=== PATIENT | male | born 1985 | race African-American/Black ===

== ENCOUNTER 2018-01-07 06:38 | Emergency (ER) | payer SELFPAY ==
[~2018-01-07] VITALS: Ht 188 cm; Wt 121.1 kg
[2018-01-07] MEDS ORDERED: MOTRIN PM CAPL1 EACH PO (06:50)
[2018-01-07 07:18] LABS: ABSOLUTE BASOPHIL COUNT 0 /CUMM (0.0-0.2); ABSOLUTE EOSINOPHIL COUNT 0.1 /CUMM (0.0-0.7); ABSOLUTE GRANULOCYTE CT 4.8 /CUMM (1.4-6.5); ABSOLUTE MONOCYTE COUNT 0.6 /CUMM (0.10-0.60); BASOPHIL % 0.3 % (0.0-2.0); EOSINOPHIL % 0.8 % (0-5); GRANULOCYTE % 63.9 % (42.2-75.2); HEMATOCRIT 45.2 % (42-52); MEAN CORPUSCULAR HGB 30.2 PG (27.0-31.0); MEAN CORPUSCULAR HGB CONC 33.6 G/DL (33.0-37.0); MEAN CORPUSCULAR VOLUME 89.8 FL (80.0-94.0); MEAN PLATELET VOLUME 8.6 FL (7.4-10.4); PLATELET COUNT 280 /CUMM (130-400); RBC DISTRIBUTION WIDTH 13.1 % (11.5-14.5); RED BLOOD CELL CT 5.04 /CUMM (4.70-6.10); WHITE BLOOD CELL COUNT 7.5 /CUMM (4.8-10.8)
--- NOTE | 2018-01-07 07:20 | ED GENERAL ADULT ---
History of Present Illness General Chief Complaint: Chest Pain Stated Complaint: PT C/O CHEST PAIN SINCE MIDNIGHT Source: patient Exam Limitations: no limitations Vital Signs & Intake/Output Vital Signs & Intake/Output Vital Signs Date Time Temp Pulse Resp B/P B/P Pulse O2 O2 Flow FiO2 Mean Ox Delivery Rate 01/07 1035 98.2 90 20 150/70 100 Room Air 01/07 0816 98.3 61 20 126/66 98 Room Air 01/07 0649 98.3 83 18 114/72 99 Room Air 01/07 0645 100 Room Air Allergies Coded Allergies: No Known Allergies (01/07/18) Reconcile Medications Ibuprofen/Diphenhydramine Cit (Motrin Pm Caplet) 200 MG-38 MG TABLET 1 TAB PO BEDTIME SLEEP (Reported) Triage Note: TRIAGE: PATIENT TO ER FROM HOME REPORTING +CP SINCE LAST NIGHT APPROX MIDNIGHT, +NAUSEA YESTERDAY. DENIES CARDIAC HX. DENIES SOB, NO ACUTE RESP DISTRESS NOTED. Triage Nurses Notes Reviewed? yes HPI: 32-year-old male with no significant past medical history or family history presents with chest pain. Chest pain is substernal described as burning radiating up into the throat. Woke patient from sleep last night improved with changing position. Not exacerbated with exertion. Associated symptoms of headache. Chest pain headache currently not present. Past History Travel History Traveled to [place] past 21 day No Medical History Any Pertinent Medical History? see below for history Neurological: NONE EENT: NONE Cardiovascular: NONE Respiratory: NONE Gastrointestinal: NONE Hepatic: NONE Renal: NONE Musculoskeletal: NONE Psychiatric: NONE Endocrine: NONE Blood Disorders: NONE Cancer(s): NONE JOB SERVICE SPECIALIST/Reproductive: NONE Surgical History Surgical History: non-contributory Psychosocial History What is your primary language German Tobacco Use: Quit >30 days ago Family History Hx Contributory? No Review of Systems Review of Systems Constitutional: Reports: no symptoms, see HPI. EENTM: Reports: no symptoms. Respiratory: Reports: no symptoms. Cardiovascular: Reports: no symptoms. GI: Reports: no symptoms. Genitourinary: Reports: no symptoms. Musculoskeletal: Reports: no symptoms. Skin: Reports: no symptoms. Neurological/Psychological: Reports: no symptoms. Hematologic/Endocrine: Reports: no symptoms. Immunologic/Allergic: Reports: no symptoms. All Other Systems: Reviewed and Negative Physical Exam Physical Exam General Appearance: no apparent distress, comfortable Comments: Gen.: Well-nourished, well-developed, no acute respiratory distress. Head: Normocephalic, atraumatic. Eyes: Normal inspection bilaterally Ears: Normal inspection bilaterally Nose: Normal inspection Throat/mouth : Moist mucosa Neck: Supple, full range of motion, no goiter Heart: Regular rate and rhythm, no murmurs rubs or gallops Lungs: Clear to auscultation bilaterally with normal air entry Chest: Nontender Back: Normal range of motion Abdomen: Soft, nontender, nondistended, normal bowel sounds Extremities: Normal range of motion grossly, equal radial pulses, no cyanosis clubbing or edema Neurologic: Cranial nerves grossly intact, speech is clear Skin: warm and dry Psychiatric: Calm, cooperative, no apparent delusions or hallucinations Core Measures ACS in differential dx? No CVA/TIA Diagnosis: No Sepsis Present: No Sepsis Focused Exam Completed? No Progress Differential Diagnoses I considered the following diagnoses in my evaluation of the patient: I considered the following: Pericarditis- but the patient had no pericardial friction rub, no preceding viral illnesses and no EKG changes consistent with this. Acute coronary syndrome but the patient's EKG showed no acute changes, the troponin level was normal, the patient had a paucity of risk factors and the patient's clinical presentation wasn't consistent with this. Pneumothorax but the chest x-ray did not show this. Pneumonia but the chest x-ray did not show infiltrate. Pulmonary embolus but the patient had no resting tachycardia, was not hypoxic, had a paucity of risk factors and was PERC negative. Aortic aneurysm but the description of the patient's pain was inconsistent with this. The chest x-ray showed no widened mediastinum or other changes consistent with this. In addition the patient had a paucity of risk factors. Plan of Care: Orders Procedure Date/time Status Regular Diet 01/07 B Active TROPONIN LEVEL 01/07 1000 Complete EKG 01/07 1000 Active TROPONIN LEVEL 01/07 0653 Complete MAGNESIUM 01/07 0653 Complete COMPREHENSIVE METABOLIC PANEL 01/07 0653 Complete CBC WITHOUT DIFFERENTIAL 01/07 0653 Complete EKG 01/07 0642 Active Laboratory Tests 01/07/18 1015: Troponin I < 0.01 01/07/18 0615: Anion Gap 10, Estimated GFR > 60, BUN/Creatinine Ratio 20.0, Glucose 109 H, Calcium 9.7, Magnesium 2.2, Total Bilirubin 0.5, AST 28, ALT 32, Alkaline Phosphatase 76, Troponin I < 0.01, Total Protein 7.3, Albumin 4.3, Globulin 3.0, Albumin/Globulin Ratio 1.4, CBC w Diff NO MAN DIFF REQ, RBC 5.04, MCV 89.8, MCH 30.2, MCHC 33.6, RDW 13.1, MPV 8.6, Gran % 63.9, Lymphocytes % 26.4, Monocytes % 8.6, Eosinophils % 0.8, Basophils % 0.3, Absolute Granulocytes 4.8, Absolute Lymphocytes 2.0, Absolute Monocytes 0.6, Absolute Eosinophils 0.1, Absolute Basophils 0 Initial ED EKG: normal axis, normal intervals, normal p-waves, normal QRS complex, normal sinus rhythm, no ST T wave changes Repeat EKG: unchanged Comments: Cardiac versus reflux. Spoke with the patient by using [id number] Tums as needed for acid reflux. Follow-up with cardiology for further evaluation. Return precautions given. Departure Departure Disposition: HOME OR SELF CARE Condition: Stable Clinical Impression Primary Impression: Chest pain Qualifiers: Chest pain type: unspecified Qualified Code: R07.9 - Chest pain, unspecified Referrals: Patient Has No Primary Care Dr (PCP/Family) Abe ECHAVARRIA,Perry Oconnor Departure Forms: Customer Survey General Discharge Information Comments Please note that there might be incidental findings in your evaluation that are unrelated to the current emergency department visit. Please notify your primary care doctor about this emergency department visit in order to obtain and review all of the testing performed so that these incidental findings can be monitored as needed. If you had an x-ray performed, please understand that some fractures may not be seen on the initial set of x-rays. If your symptoms persist you might need a repeat set of x-rays to check for such a fracture. If you had a laceration evaluated, please understand that foreign bodies such as glass or wood may not be visible to the naked eye or on plain x-rays. If the wound becomes red, swollen, increasingly more painful or if there is any drainage from the wound, please have it reevaluated by a physician for the possibility of a retained foreign body. If you're unable to follow up as outlined in the discharge instructions please return to the emergency department. Critical Care Note Critical Care Note Critical Care Time: non-applicable
--- NOTE | 2018-01-07 07:46 | RADIOLOGY REPORT ---
EXAMINATION: XR PORTABLE CHEST CLINICAL INFORMATION: Chest pain COMPARISON: None TECHNIQUE: Portable frontal view of the chest was obtained. FINDINGS: No significant abnormality is noted involving the heart, lungs, mediastinum, bony thorax or soft tissues. IMPRESSION: Unremarkable examination.
[2018-01-07 10:35] VITALS: BP 150/70
== END 2018-01-07 11:14 ==
LOC: ERH 06:38
PROVIDERS: Emergency Medicine
DX: R07.89 Other chest pain (principal); Z87.891 Personal history of nicotine dependence
CPT/HCPCS: 71045; 93005; 93010